=== PATIENT | female | born 1985 | race Caucasian/White ===

== ENCOUNTER 2017-08-03 13:42 | Emergency (ER) | payer SELFPAY ==
--- NOTE | 2017-08-03 14:10 | NUR ---
PT CALLED ON THE LOBBY, NO ANSWER
--- NOTE | 2017-08-03 14:48 | NUR ---
2ND CALL AT THE LOBBY NO ANSWER, [facility]BS
== END 2017-08-03 14:48 | disposition left against medical advice (07) ==
LOC: MED 13:42
DX: Z53.21 Procedure and treatment not carried out due to patient leaving prior to being seen by health care provider (principal)

== ENCOUNTER 2020-09-13 00:20 | Emergency (ER) | payer MEDICAID ==
[~2020-09-13] VITALS: Ht 157.5 cm; Wt 63.0 kg
[2020-09-13 00:36] VITALS: BP 109/63
[2020-09-13] MEDS ORDERED: KETOROLAC 60 MG/2 ML VIAL IM ONE (00:50)
[2020-09-13 01:20] VITALS: BP 109/63
== END 2020-09-13 01:22 | disposition home or self-care (01) ==
LOC: MED 00:20
DX: G89.29 Other chronic pain (principal); M54.9 Dorsalgia, unspecified; R05 Cough
CPT/HCPCS: 96372; 99283; J1885